=== PATIENT | female | born 1940 | race Caucasian/White ===

== ENCOUNTER 2021-07-14 10:56 | Emergency (ER) | payer MEDICARE, OTHER, SELFPAY ==
[2021-07-14 11:06] VITALS: BP 172/78; PULSE 75; RESP 17; TEMP 36.8; O2SAT 98; BMI 21.0
[2021-07-14 11:12] VITALS: PULSE 75
[2021-07-14 11:37] VITALS: BP 139/65; PULSE 77; RESP 17; O2SAT 99
--- NOTE | 2021-07-14 11:38 | DI.RAD.S_ITS ---
PROCEDURE: XR KNEE RT 1TO2V INDICATIONS: Fall/injury TECHNIQUE: 2 views of the knee were acquired. COMPARISON: None. FINDINGS: Bones: There is a markedly displaced mid patellar fracture we and why with approximately 2.4 cm diastasis between fracture fragments. Soft tissues: Prominent effusion is present. No suspicious soft tissue calcifications. IMPRESSION: Prominent effusion with displaced patellar fracture. Dictated by: Mary Healy M.D. on 07/14/2021 at 12:13 Approved by: Mary Healy M.D. on 07/14/2021 at 12:16
--- NOTE | 2021-07-14 11:39 | DI.CT.S_ITS ---
PROCEDURE: CT LE RT WO CON INDICATIONS: Right Knee pain/injury/swelling TECHNIQUE: Noncontrast 3 mm axial sections acquired of the left lower extremity around the knee, with coronal and sagittal reformats. COMPARISON: [facility], CR, XR KNEE ARTHRITIC SERIES LT, 12/05/2018, 10:31. [facility], CR, XR KNEE RT 1TO2V, 07/14/2021, 11:32. FINDINGS: Image quality: Excellent. Bones: There is a comminuted fracture of patella with significant displacement. Soft tissues: There is a moderate knee joint effusion. Prepatellar soft tissue swelling. IMPRESSION: 1. Comminuted patellar fracture with displacement. 2. Moderate knee joint effusion. Dictated by: Brien Ro M.D. on 07/14/2021 at 12:57 Approved by: Brien Ro M.D. on 07/14/2021 at 13:00
--- NOTE | 2021-07-14 11:40 | ED_ITS ---
HPI - Extremity Injury (Lower) <Jey Ndiaye MD - Last Filed: 07/25/21 07:07> General Chief Complaint: Extremity Injury, Lower Stated Complaint: GLF Time Seen by Provider: 07/14/21 11:35 Source: patient and EMS Mode of arrival: EMS History of Present Illness HPI Narrative: Patient brought here by ambulance from home. Has injury to the right knee. at bedside. Patient states she stumbled on some cement with the left foot and fell onto her right knee. Denies any numbness tingling or weakness to the foot. There is large amount of edema to the patella. Skin is intact. No hip or ankle pain or injury. Limited flexion extension of the knee due to pain and swelling. Related Data Previous Rx's Medication Instructions Recorded hydrocodone 5 mg-acetaminophen 325 1 tab PO Q6H PRN #14 tab 07/14/21 mg tablet ondansetron 4 mg disintegrating 4 mg PO Q8H PRN #10 tab 07/14/21 tablet Allergies Allergy/AdvReac Type Severity Reaction Status Date / Time unknown antibiotic Allergy Unknown Uncoded 07/14/21 11:19 Review of Systems <Jey Ndiaye MD - Last Filed: 07/25/21 07:07> Review of Systems Narrative: GENERAL: Denies chills, fatigue, malaise, fever, sweats. HEENT: Denies sinus pain, ear pain, sore throat RESPIRATORY: Denies dyspnea, cough CARDIOVASCULAR: Denies chest pain, palpitations GASTROINTESTINAL: Denies nausea, vomiting, abdominal pain : Denies dysuria, frequency, hematuria MUSCULOSKELETAL: Positive muscle or bony pain SKIN: Denies rash, skin lesions NEUROLOGIC: Denies weakness, numbness ROS Unobtainable: All systems reviewed & are unremarkable except as noted in HPI and below Patient History <Jey Ndiaye MD - Last Filed: 07/25/21 07:07> Social History Smoking Status: Never smoker Smoking Status: Never smoker alcohol intake frequency: 0-2 drinks per day Alcohol type: beer and wine Substance Use Type: does not use Exam <Jey Ndiaye MD - Last Filed: 07/25/21 07:07> Narrative Exam Narrative: GENERAL: in no distress, not toxic not dyspneic HEAD: Normocephalic. EXTREMITIES: Right thigh to toes exposed. Nontender hip and ankle and foot. Able to flex and extend at the ankle. Light touch intact to foot and toes. Strong pedal pulse. Foot is warm soft and pink. Strong posterior tibial pulse as well as popliteal pulse. There is large edema to the patella. Tender to touch. Skin is intact. Limited active flexion extension of the knee due to pain and swelling. NEURO: AOx4. SKIN: Warm and dry PSYCH: Not anxious, is cooperative Initial Vital Signs Initial Vital Signs: Vital Signs Temperature 98.2 F 07/14/21 11:06 Pulse Rate 75 07/14/21 11:06 Respiratory Rate 17 07/14/21 11:06 Blood Pressure 172/78 H 07/14/21 11:06 Pulse Oximetry 98 07/14/21 11:06 <Edilma Schmidt DO - Last Filed: 07/14/21 18:58> Initial Vital Signs Initial Vital Signs: Vital Signs Temperature 98.2 F 07/14/21 11:06 Pulse Rate 75 07/14/21 11:06 Respiratory Rate 17 07/14/21 11:06 Blood Pressure 172/78 H 07/14/21 11:06 Pulse Oximetry 98 07/14/21 11:06 Course <Jey Ndiaye MD - Last Filed: 07/25/21 07:07> Course Course Narrative: 12 pm s/o dr schmidt, imaging results pending. Will likely need to contact Orthopedics Orders Ordered: Discontinued Medications Hydromorphone HCl (Hydromorphone 1 Mg Inj) 1 mg IV NOW ONE Stop: 07/14/21 11:39 Last Admin: 07/14/21 12:06 Dose: 1 mg Documented by: KYLIE Ondansetron HCl (Ondansetron 4 Mg/2 Ml Inj) 4 mg IV NOW ONE Stop: 07/14/21 11:39 Last Admin: 07/14/21 12:07 Dose: 4 mg Documented by: KYLIE Ondansetron HCl (Ondansetron 4 Mg/2 Ml Inj) 4 mg IV NOW ONE Stop: 07/14/21 13:39 Ondansetron HCl (Ondansetron 4 Mg Odt) 4 mg SL NOW ONE Stop: 07/14/21 14:30 Last Admin: 07/14/21 14:34 Dose: 4 mg Documented by: KYLIE Vital Signs Vital signs: Vital Signs - 8 hr 07/14/21 11:06 07/14/21 11:12 07/14/21 11:37 Temperature 98.2 F Pulse Rate 75 77 Pulse Rate [Right Dorsalis Pedis] 75 Respiratory Rate 17 17 Blood Pressure 172/78 H 139/65 Pulse Oximetry 98 99 07/14/21 14:45 Temperature Pulse Rate 74 Pulse Rate [Right Dorsalis Pedis] Respiratory Rate 17 Blood Pressure 124/60 Pulse Oximetry 99 <Edilma Schmidt DO - Last Filed: 07/14/21 18:58> Orders Ordered: Discontinued Medications Hydromorphone HCl (Hydromorphone 1 Mg Inj) 1 mg IV NOW ONE Stop: 07/14/21 11:39 Last Admin: 07/14/21 12:06 Dose: 1 mg Documented by: KYLIE Ondansetron HCl (Ondansetron 4 Mg/2 Ml Inj) 4 mg IV NOW ONE Stop: 07/14/21 11:39 Last Admin: 07/14/21 12:07 Dose: 4 mg Documented by: KYLIE Ondansetron HCl (Ondansetron 4 Mg/2 Ml Inj) 4 mg IV NOW ONE Stop: 07/14/21 13:39 Ondansetron HCl (Ondansetron 4 Mg Odt) 4 mg SL NOW ONE Stop: 07/14/21 14:30 Last Admin: 07/14/21 14:34 Dose: 4 mg Documented by: KYLIE Vital Signs Vital signs: Vital Signs - 8 hr 07/14/21 11:06 07/14/21 11:12 07/14/21 11:37 Temperature 98.2 F Pulse Rate 75 77 Pulse Rate [Right Dorsalis Pedis] 75 Respiratory Rate 17 17 Blood Pressure 172/78 H 139/65 Pulse Oximetry 98 99 07/14/21 14:45 Temperature Pulse Rate 74 Pulse Rate [Right Dorsalis Pedis] Respiratory Rate 17 Blood Pressure 124/60 Pulse Oximetry 99 <Edilma Schmidt DO - Last Filed: 07/14/21 18:58> Imaging Data Extremity x-ray #1: Radiologist's Impression: PROCEDURE:? XR KNEE RT 1TO2V ? INDICATIONS:? Fall/injury ? TECHNIQUE:? 2 views of the knee were acquired.? ? COMPARISON:? None. ? FINDINGS:? ? Bones:? There is a markedly displaced mid patellar fracture we and why with approximately 2.4 cm diastasis between fracture fragments. ? Soft tissues:? Prominent effusion is present.? No suspicious soft tissue calcifications.? IMPRESSION:? Prominent effusion with displaced patellar fracture. ? ? Dictated by: Mary Healy M.D. on 07/14/2021 at 12:13 ? ? Approved by: Mary Healy M.D. on 07/14/2021 at 12:16 ? CT EX: Radiologist's Impression: PROCEDURE:? CT LE RT WO CON ? INDICATIONS:? Right Knee pain/injury/swelling ? TECHNIQUE:? Noncontrast 3 mm axial sections acquired of the left lower extremity around the knee, with coronal and sagittal reformats. ? ? COMPARISON:? [facility], CR, XR KNEE ARTHRITIC SERIES LT, 12/05/2018, 10:31.? [facility], CR, XR KNEE RT 1TO2V, 07/14/2021, 11:32. ? FINDINGS:? Image quality:? Excellent.? ? Bones:? There is a comminuted fracture of patella with significant displacement. ? Soft tissues:? There is a moderate knee joint effusion.? Prepatellar soft tissue swelling. ? IMPRESSION:? ? 1. Comminuted patellar fracture with displacement. 2. Moderate knee joint effusion. ? ? ? Dictated by: Brien Ro M.D. on 07/14/2021 at 12:57 ? MDM Narrative Medical decision making narrative: Received sign-out from Dr. Ndiaye I seen evaluated patient myself. She has significant right knee prepatellar swelling. She is not on any antiplatelet or anticoagulation medication. She is able to move her hip and ankle distal pedal pulse is intact. Both CT and x-ray show comminuted patellar fracture with displacement a moderate joint effusion. He is placed in knee immobilizer given crutches pain medication and orthopedic follow-up. Dr. Ramirez orthopedics has been updated patient's symptoms agrees with outpatient follow-up Discharge Plan Departure Patient Disposition: Home Clinical Impression: Closed patellar sleeve fracture Instructions: Patella Fracture Activity Restrictions/Additional Instructions: *You have been diagnosed with patellar fracture *What to do: At this time no weight-bearing ice 20-30 minutes at least 4 times a day elevate as much as possible. Wear knee immobilizer. Use crutches. This will likely need surgery. He will need to follow-up with orthopedics and call their office either today or tomorrow *Continue to take medications as directed Haskins 1 tablet every 6 hours if needed for severe pain Zofran 4 mg every 8 hours if minor nausea or vomiting *Follow up with your primary care provider in 2-3 days CALL ORTHOPEDICS TODAY TO SCHEDULE FOLLOW-UP APPOINTMENT *Return to ER if you should have increasing pain numbness tingling or weakness or any new, worsening or concerning symptoms CONTROLLED SUBSTANCE DISCHARGE (Narcotoic/benzodiazepine/Flexeril/Phenergan) 1. You have been prescribed narcotic medications, it does have acetaminophen/Tylenol/paracetamol in it, DO NOT TAKE MORE THAN 4,00mg in 24 hours of Tylenol. TRAMADOL DOES NOT CONTAIN TYLENOL 2. Please understand that we cannot provide further refills of narcotics, benzodiazepines or controlled substances through the ED and her pain management will need to be through your provider. 3. While on these medications you cannot drive or operate heavy machinery. 4. You cannot sign legal documents or perform any duties such as this. 5. As long as you're taking opiate pain medications he should also be taking a stool softener such as Colace, Dulcolax, MiraLAX or prune juice, to help avoid constipation. Prescriptions: New hydrocodone-acetaminophen 5-325 mg tablet 1 tab PO Q6H PRN (Reason: pain) Qty: 14 0RF ondansetron 4 mg tablet,disintegrating 4 mg PO Q8H PRN (Reason: nausea and vomiting) Qty: 10 0RF Referrals: [facility] [Provider Group] Jey Muhammad MD [Primary Care Provider] -
[2021-07-14] MEDS: HYDROMORPHONE 1 MG INJ IV (12:06)
[2021-07-14] MEDS: ONDANSETRON 4 MG/2 ML INJ IV (12:07)
[2021-07-14] MEDS: ONDANSETRON 4 MG ODT SL (14:34)
[2021-07-14 14:45] VITALS: BP 124/60; PULSE 74; RESP 17; O2SAT 99
== END 2021-07-14 14:46 | disposition home or self-care (01) ==
PROVIDERS: Emergency Provider Emergency Medicine; PCP Internal Medicine
DX: S82.041A Displaced comminuted fracture of right patella, initial encounter for closed fracture (principal); W18.30XA Fall on same level, unspecified, initial encounter
CPT/HCPCS: 73560; 73700; 96374; 96375; 99284; J1170; J2405; Q9967

== ENCOUNTER → 2021-07-20 13:26 | Outpatient (CLI) | payer MEDICARE, OTHER, SELFPAY ==
[2021-07-20 13:52] LABS: Add Manual Diff / Slide Review NO; Basophils Absolute Auto 0 /uL (0-100); Basophils Percent Auto 0.6 % (0-2); Eosinophils Absolute Auto 100 /uL (0-450); Eosinophils Percent Auto 1.3 % (2-4); Hemoglobin 12.5 g/dL (12.0-16.0); Lymphocytes Absolute Auto 1000 /uL (1100-4500); Lymphocytes Percent Auto 17.7 % (25-40); Mean Corpuscular HGB Conc 33.7 % (30-36); Mean Corpuscular Hemoglobin 30.1 PG (26-34); Mean Corpuscular Volume 89.2 fL (80-100); Monocytes Absolute Auto 500 /uL (0-900); Monocytes Percent Auto 8.5 % (3-14); Neutrophils Absolute Auto 4100 /uL (1500-7000); Neutrophils Percent Auto 71.9 % (50-75); Platelet Count 265 X10^3/uL (150-400); Red Blood Cell Count 4.14 X10^6/uL (4.0-5.2); Red Cell Distribution Width 14.3 % (11.6-14.8); White Blood Cell Count 5.7 X10^3/uL (4.5-11.0)
[2021-07-20 14:13] LABS: BUN Creatinine Ratio 18.5 (6-22); Blood Urea Nitrogen 17 mg/dL (7-17); Calcium 10.1 mg/dL (8.4-10.2); Carbon Dioxide 29 mmol/L (22-32); Chloride 104 mmol/L (98-107); Estimated Glomerular Filt Rate 58.6 mL/min (>60); Glucose 109 mg/dL (80-110); HEMOLYSIS < 15 (0-50); Potassium 4.6 mmol/L (3.4-5.1); Sodium 140 mmol/L (137-145)
== END ==
PROVIDERS: PCP Internal Medicine; Referring Provider Orthopaedic Surgery; Visit Provider Orthopaedic Surgery
DX: Z01.818 Encounter for other preprocedural examination (principal); Z01.812 Encounter for preprocedural laboratory examination
CPT/HCPCS: 36415; 80048; 85025; 93005

== ENCOUNTER → 2022-01-18 13:51 | Outpatient (CLI) | payer MEDICARE, OTHER, SELFPAY ==
--- NOTE | 2022-01-18 13:52 | DI.CT.S_ITS ---
PROCEDURE: CT LE RT WO CON INDICATIONS: Displaced comminuted fracture of right patella TECHNIQUE: Noncontrast 1-1.5 mm axial sections acquired from the mid-patella to the proximal tibia, with coronal and sagittal reformats. COMPARISON: [facility], CT, CT LE RT WO CON, 07/14/2021, 12:12. [facility], CR, XR KNEE 4+ VIEWS RIGHT, 12/28/2021, 14:12. FINDINGS: Image quality: Diagnostic. Beam hardening artifacts from surgical hardware are seen.. Bones: Patient is status post internal fixation of previously noted comminuted and displaced patellar fracture. There is near completely healed patellar fracture. No hardware loosening or failure. Alignment of right knee and patella is anatomic. No patellar subluxation or dislocation. 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 No acute fracture or dislocation. No suspicious intraosseous lesion. Soft tissues: There is small to moderate joint effusion. No calcified intra-articular loose body is seen. No abnormal soft tissue calcification is seen. Skin thickening and underlying subcutaneous soft tissue edema over anterior aspect of patella is noted without discrete drainable fluid collection or open wound. Thickened distal quadriceps tendon at its superior patellar insertion is seen. Patellar tendon is intact. Anterior and posterior cruciate ligaments are intact. IMPRESSION: 1. Post ORIF changes in patella with nearly healed patellar fracture and anatomic patellar alignment. No acute fracture or dislocation. No evidence of hardware loosening or failure. 2. Suggestion of cellulitis over anterior aspect of patella. No discrete drainable abscess collection is noted. Small to moderate joint effusion, no calcified loose bodies. 3. 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 No suspicious intraosseous lesion. 4. Suggestion of distal quadriceps tendinosis/partial-thickness tear at its superior patellar insertion. No quadriceps tendon rupture. Patellar tendon is intact. Dictated by: Abdulaziz Estrada M.D. on 01/18/2022 at 16:39 Approved by: Abdulaziz Estrada M.D. on 01/18/2022 at 16:46
== END ==
PROVIDERS: PCP Internal Medicine; Referring Provider Orthopaedic Surgery; Visit Provider Orthopaedic Surgery
DX: S82.041D Displaced comminuted fracture of right patella, subsequent encounter for closed fracture with routine healing (principal); M17.11 Unilateral primary osteoarthritis, right knee; X58.XXXD Exposure to other specified factors, subsequent encounter
CPT/HCPCS: 73700